=== PATIENT | female | born 1950 | race Caucasian/White ===

== ENCOUNTER → 2019-01-06 09:10 | Outpatient (CLI) | payer MEDICARE, OTHER, SELFPAY ==
[2014-07-06 06:40] VITALS: BMI 26.6
--- NOTE | 2019-01-06 09:22 | RAD_ITS ---
STUDY: X-RAY - ABDOMEN/PELVIS REASON FOR EXAM: Female, 68 years old. Abdominal pain TECHNIQUE: Single AP view of the abdomen / pelvis. COMPARISON: None. FINDINGS: Status post cholecystectomy. There is an unremarkable bowel gas pattern. The visualized liver, spleen and kidneys are grossly normal in size and morphology. Normal soft tissue structures. Normal visualized osseous structures. RAD/Abdomen Single View IMPRESSION: Normal x-ray examination of the abdomen and pelvis. No obvious renal or ureteral stone. Electronically Signed: Timoteo Steele MD at 10:23 EDT Tel , Service support ,
[2019-01-06 11:31] LABS: Anion Gap 7 (5-15); BUN 17 mg/dL (7-18); BUN/Creat Ratio 20.4 RATIO (10-20); Calcium,Total 9.3 mg/dL (8.5-10.1); Chloride 103 mmol/L (98-107); Creatinine, Serum 0.83 mg/dL (0.55-1.02); EST Glomerular Filtration Rate 72 mL/min (>60); Est Glom Filt Rate - Afr Amer 87 mL/min (>60); Glucose 210 mg/dL (74-106); Potassium 4.2 mmol/L (3.5-5.1); Sodium Level 137 mmol/L (136-145); Uric Acid 4.9 mg/dL (2.6-6.0)
[2019-01-06 11:33] LABS: PTHIN 25.3 pg/mL (18.4-80.1)
[2019-01-15 12:08] LABS: Ca Oxalate, Dihydrate 55 % (.); Ca Oxalate, Monohydrate 40 % (.); Size 5x4x2 mm (.)
[2019-01-15 16:27] LABS: Comment Note: (.)
== END ==
PROVIDERS: Family Provider Family Medicine; PCP Family Medicine; Referring Provider Nurse Practitioner Adult Health; Visit Provider Nurse Practitioner Adult Health
DX: N20.0 Calculus of kidney (principal); R82.998 Other abnormal findings in urine
CPT/HCPCS: 36415; 74018; 80048; 82360; 83970; 84550; 87086; 87088

== ENCOUNTER → 2022-10-22 | Outpatient (CLI) | payer MEDICARE, OTHER, SELFPAY ==
--- NOTE | 2022-10-22 12:07 | CT_ITS ---
INDICATION: CALCULUS OF KINDEY EXAMINATION: CT ABDOMEN AND PELVIS WITHOUT CONTRAST - CT Abdomen And Pelvis W/O Contrast Injection TECHNIQUE: Helically acquired images were obtained of the abdomen and pelvis without oral or IV contrast. A radiation dose optimization technique was used for this scan. IV Contrast dosage and agent: None. Oral contrast: None. RADIATION DOSAGE (If Supplied By Facility): CTDIvol = ( 12.13 ) mGy, DLP = ( 627.49 ) mGycm COMPARISON: FINDINGS: LOWER CHEST: Lung bases are clear. No cardiomegaly or pericardial effusion. LIVER: Homogeneous. No focal mass. GALLBLADDER AND BILIARY TREE: Gallbladder has been removed. No gallbladder distension or wall edema. No intra- or extrahepatic biliary ductal dilation. PANCREAS: No focal cystic or solid mass. SPLEEN: Normal size without focal cystic or solid mass. ADRENAL GLANDS: There is a 1 cm right adrenal adenoma. KIDNEYS AND URETERS: There is mild left greater than right perinephric infiltrative change without evidence for hydronephrosis or hydroureter. A recently passed stone is a possibility although no obstructing stones are noted. There is a nonobstructing 3 mm stone in the midpole of the right kidney. No hydronephrosis. PERITONEUM: No ascites or free air. No other fluid collection. BOWEL: No evidence of acute appendicitis. No stomach or bowel distension. No focal inflammatory change. LYMPH NODES: No enlarged mesenteric or retroperitoneal lymph nodes. VESSELS: Aorta is non-dilated. URINARY BLADDER: Evaluation of the urinary bladder is limited secondary to under distention. REPRODUCTIVE ORGANS: No pelvic masses. ABDOMINAL WALL: No discrete abdominal or pelvic wall hernia. BONES: There is a chronic L1 compression deformity. CT/Abdomen/Pelvis without Cont IMPRESSION: Left greater than right perinephric infiltrative change possibly representing a recently passed stone without evidence for significant hydronephrosis or hydroureter. Punctate nonobstructing stone in the right kidney. 1 cm left adrenal adenoma. Electronically Signed: Juan Jose Bello, at 14:32 EDT Reading Location ID and State: [address] [place] [address] Tel , Service support ,
== END | disposition home or self-care (01) ==
LOC: CT 12:01
PROVIDERS: PCP Family Medicine; Referring Provider Urology; Visit Provider Urology
DX: N20.0 Calculus of kidney (principal); R31.0 Gross hematuria
CPT/HCPCS: 74176